=== PATIENT | male | born 1980 | race Two or more races ===

== ENCOUNTER 2018-05-22 21:45 | Emergency (ER) | payer OTHER ==
[~2018-05-22] VITALS: Ht 175.3 cm; Wt 85.3 kg
[~2018-05-22 21:45] MED LIST: KETO10TA2 PO; LOPERAMIDE1 MG/5 ML; MOTRIN800 MG PO; SEPTRA DS TABLE1 TAB PO
[2018-05-23] MEDS ORDERED: CIPRO500 MG PO (02:58)
[2018-05-23] MEDS ORDERED: KETO10TA2 PO (02:58)
== END 2018-05-23 02:55 | disposition home or self-care (01) ==
LOC: ER 21:45
DX: R31.0 Gross hematuria (principal)

== ENCOUNTER 2018-05-29 00:38 | Emergency (ER) | payer OTHER ==
[~2018-05-29] VITALS: Ht 175.3 cm; Wt 86.6 kg
[~2018-05-29 00:38] MED LIST changes: +CIPRO500 MG PO
[2018-05-29] MEDS ORDERED: NORFLEX 60 MG (00:51)
[2018-05-29] MEDS ORDERED: CATAFLAN (00:52)
[2018-05-29] MEDS ORDERED: KETO10TA2 PO (03:21)
[2018-05-29] MEDS ORDERED: SKELAXIN800 MG PO (03:21)
[2018-05-29] MEDS ORDERED: PERCOCET 5-3251 EACH PO (03:21)
== END 2018-05-29 03:36 | disposition home or self-care (01) ==
LOC: ER 00:38
DX: R07.81 Pleurodynia (principal)

== ENCOUNTER 2018-06-06 15:04 | Outpatient (CLI) | payer OTHER ==
[~2018-06-06 15:04] MED LIST changes: +CATAFLAN; +NORFLEX 60 MG; +PERCOCET 5-3251 EACH PO; +SKELAXIN800 MG PO
== END 2018-06-06 15:05 | disposition home or self-care (01) ==
LOC: LAB 15:04
DX: R31.0 Gross hematuria (principal)

== ENCOUNTER 2018-06-08 07:35 | Outpatient (CLI) | payer OTHER | END 2018-06-08 07:43 | disposition home or self-care (01) | LOC: TOM 07:35 | DX: R31.0 Gross hematuria (principal); N20.0 Calculus of kidney ==

== ENCOUNTER 2018-06-10 08:50 | Outpatient (CLI) | payer OTHER | END 2018-06-10 09:47 | disposition home or self-care (01) | LOC: LAB 08:50 | DX: R31.0 Gross hematuria (principal); N20.0 Calculus of kidney ==

== ENCOUNTER 2020-12-24 12:25 | Outpatient (CLI) | payer OTHER | END 2020-12-24 12:43 | disposition home or self-care (01) | LOC: RAD 12:25 | PROVIDERS: ATTEND Orthopaedic Surgery | DX: M25.562 Pain in left knee (principal) ==